=== PATIENT | male | born 1995 | race American Indian/Alaskan Native ===

== ENCOUNTER 2020-01-17 10:22 | Emergency (ER) | payer MEDICAID, OTHER ==
[~2020-01-17] VITALS: Ht 160 cm; Wt 73.8 kg
[~2020-01-17 10:22] MED LIST: LIDOcaine 1% W/epiNEPHrine 1:100,000 20ml vial ONE
[2020-01-17 10:34] VITALS: BP 120/81
[2020-01-17] MEDS ORDERED: TETanus/Pertussis (Acell)/Diphther VAC/PF (Tdap-Adult) 0.5ml syringe IMVAC ONE (11:15)
[2020-01-17] MEDS ORDERED: AMOX-419 PO (11:16)
== END 2020-01-17 11:37 | disposition home or self-care (01) ==
LOC: ER 10:24
DX: S51.811A Laceration without foreign body of right forearm, initial encounter (principal); Z79.2 Long term (current) use of antibiotics; X58.XXXA Exposure to other specified factors, initial encounter; Y93.89 Activity, other specified; Y92.89 Other specified places as the place of occurrence of the external cause; Y99.8 Other external cause status
CPT/HCPCS: 12001; 90471; 90715; 99283